=== PATIENT | female | born 1935 | race Caucasian/White ===

== ENCOUNTER 2019-08-13 11:13 | Inpatient (IN) | payer MEDICARE, OTHER ==
[2019-08-13] MEDS ORDERED: DILTIAZEM HCL INJ 25 MG/5 ML VIAL IV ONE (11:44)
[2019-08-13] MEDS ORDERED: METOPROLOL TARTRATE PF/INJ 5 MG/5 ML SDV IV ONE (11:44)
[2019-08-13 11:49] LABS: ABSOLUTE EOSINOPHILS # (AUTO) 0.1 10^3/uL (0.0-0.6); ABSOLUTE LYMPHOCYTES (AUTO) 1.5 10^3/uL (0.5-4.7); ABSOLUTE MONOCYTES (AUTO) 0.6 10^3/uL (0.1-1.4); ABSOLUTE NEUT (AUTO) 4.6 10^3/uL (1.7-8.2); BASOPHILS % (AUTO) 0.6 % (0-2); EOSINOPHILS % (AUTO) 0.8 % (0-6); HEMOGLOBIN 13.8 g/dL (12.0-15.5); LYMPHOCYTES % (AUTO) 22.5 % (13-45); MEAN CORPUSCULAR HEMOGLOBIN 27.6 pg (27.0-33.4); MEAN CORPUSCULAR HGB CONC 32.8 g/dL (32.0-36.0); MEAN CORPUSCULAR VOLUME 84 fl (80-97); MONOCYTES % (AUTO) 8.8 % (3-13); PLATELET COUNT 203 10^3/uL (150-450); SEGMENTED NEUTROPHILS % (AUTO) 67.3 % (42-78); TOTAL CELLS COUNTED % (AUTO) 100 %; WHITE BLOOD COUNT 6.9 10^3/uL (4.0-10.5)
--- NOTE | 2019-08-13 12:00 | EKG REPORT ---
SEVERITY:- ABNORMAL ECG - ATRIAL FIBRILLATION BORDERLINE LEFT AXIS DEVIATION BORDERLINE T ABNORMALITIES, LATERAL LEADS BORDERLINE PROLONGED QT INTERVAL : Confirmed by: Nanci De La Fuente 13-Aug-2019 11:58:51
[2019-08-13 12:01] LABS: ALBUMIN 4.1 g/dL (3.5-5.0); ALKALINE PHOSPHATASE 75 U/L (38-126); ANION GAP 10 (5-19); ASPARTATE AMINO TRANSFERASE 26 U/L (14-36); BILIRUBIN,DIRECT 0.1 mg/dL (0.0-0.4); BILIRUBIN,TOTAL 1.9 mg/dL (0.2-1.3); BLOOD UREA NITROGEN 12 mg/dL (7-20); CALCIUM 9.4 mg/dL (8.4-10.2); CARBON DIOXIDE 27 mmol/L (22-30); CHLORIDE 103 mmol/L (98-107); CREATINE KINASE 29 U/L (30-135); GLUCOSE 107 mg/dL (75-110); POTASSIUM 3.9 mmol/L (3.6-5.0); TOTAL PROTEIN 7.2 g/dL (6.3-8.2)
[2019-08-13 12:12] LABS: CREATINE KINASE MB 1.13 ng/mL (<4.55)
[2019-08-13 12:13] LABS: TROPONIN I < 0.012 ng/mL
--- NOTE | 2019-08-13 12:53 | RADIOLOGY REPORT (SQ) ---
EXAM DESCRIPTION: CHEST SINGLE VIEW COMPLETED DATE/TIME: 08/13/2019 12:31 pm REASON FOR STUDY: chest pain COMPARISON: 01/14/2016 EXAM PARAMETERS: NUMBER OF VIEWS: One view. TECHNIQUE: Single frontal radiographic view of the chest acquired. RADIATION DOSE: NA LIMITATIONS: None. FINDINGS: LUNGS AND PLEURA: Bilateral pleural effusions. No discrete opacities. MEDIASTINUM AND HILAR STRUCTURES: Large hiatal hernia. HEART AND VASCULAR STRUCTURES: Heart enlarged with vascular congestion. BONES: No acute findings. HARDWARE: None in the chest. OTHER: No other significant finding. IMPRESSION: Cardiac enlargement, vascular congestion, bilateral effusions. Hiatal hernia. TECHNICAL DOCUMENTATION: JOB ID: [id number] 2010 [employer]- All Rights Reserved Reading location - IP/workstation name: [email or web address]
--- NOTE | 2019-08-13 14:27 | ER Document Report ---
ED Respiratory Problem - General Chief Complaint: Breathing Difficulty Stated Complaint: BREATHING AND CHEST DISCOMFORT Time Seen by Provider: 08/13/19 11:33 Primary Care Provider: THADDEUS MCCLAIN MD [ACTIVE STAFF] - Follow up as needed Mode of Arrival: Medic Information source: Patient, Relative - Daughter Notes: This 84-year-old woman presents to the emergency department with a day history of shortness of breath and episodic chest tightness. She contacted her daughter was brought to the emergency department and found to be in atrial fib with RVR. Initial rate 130s to 140s, blood pressure 178/126. She states chest pain is episodic, short and fleeting. She is unable to speak in full sentences due to the shortness ' TRAVEL OUTSIDE OF THE [place] IN LAST 30 DAYS: No - Related Data Allergies/Adverse Reactions: Sulfa (Sulfonamide Antibiotics) Allergy (Verified 07/13/15 11:49) Home Medications: Lopressor. elliquis Past Medical History - Social History Smoking Status: Never Smoker Chew tobacco use (# tins/day): No Frequency of alcohol use: None Drug Abuse: None Family History: Reviewed & Not Pertinent Patient has suicidal ideation: No Patient has homicidal ideation: No - Past Medical History Cardiac Medical History: Reports: Hx Atrial Fibrillation, Hx Heart Attack, Hx Hypercholesterolemia, Hx Hypertension GI Medical History: Reports: Hx Gastroesophageal Reflux Disease Past Surgical History: Reports: Hx Appendectomy, Hx Genitourinary Surgery - Cystocele, rectocele, bladder prolapse surgery, Hx Hysterectomy, Hx Orthopedic Surgery - Bilateral hand surgery, bilateral heel spur surgery. - Immunizations Hx Pneumococcal Vaccination: 03/21/11 Review of Systems - Review of Systems Notes: Constitutional: Negative for fever. HENT: Negative for sore throat. Eyes: Negative for visual changes. Cardiovascular: + Chest pain. Respiratory: + Shortness of breath. Gastrointestinal: Negative for abdominal pain, vomiting or diarrhea. Genitourinary: Negative for dysuria. Musculoskeletal: Negative for back pain. Skin: Negative for rash. Neurological: Negative for headaches, weakness or numbness. 10 point ROS negative except as marked above and in HPI. Physical Exam - Vital signs Vitals: Pulse Ox 98 08/13/19 11:15 - Notes Notes: PHYSICAL EXAMINATION: Physical Exam: General: Well-nourished well-developed frail 84-year-old woman in moderate distress with dyspnea. HEENT: NC/AT, pupils equal round and reactive to light, MM moist,nares clear, oropharynx clear, airway patent Neck: supple, no adenopathy, no masses. Good range of motion Lungs: clear, no wheezing, + few scattered rales bilaterally, no rhonchi CVS: Irregularly irregular tachycardia Abdomen: Soft, active, nontender, no masses, no hepatosplenomegaly Ext: No edema, clubbing or cyanosis. Neuro: Alert and responsive, moving all 4 extremities on command, cranial nerves intact, no focal findings Skin: Intact no open lesions, no rash PSYCH: Normal mood, normal affect. Course - Re-evaluation Re-evalutation: 08/13/19 14:41 Patient had a significant improvement with IV Cardizem and IV metoprolol. Her rate slowed down into the 80s, patient is now able to talk in full sentences and the dyspnea has improved. Lab review first troponin is negative, the BNP is 7080. Chest x-ray reveals vascular congestion with cardiomegaly, bilateral pleural effusions. I discussed the patient with the hospitalist, Dr. Verduzco will admit the patient to observation for further management. - Vital Signs Vital signs: Temp Pulse Resp BP Pulse Ox 98.2 F 23 H 156/100 H 91 L 08/13/19 11:17 08/13/19 13:01 08/13/19 13:01 08/13/19 13:01 - Laboratory Result Diagrams: 08/13/19 11:13 08/13/19 11:13 Laboratory results interpreted by me: 08/13/19 08/13/19 11:13 11:13 Total Bilirubin 1.9 H Creatine Kinase 29 L NT-Pro-B Natriuret Pep 7080 H - Diagnostic Test Radiology reviewed: Image reviewed, Reports reviewed - X-ray: Cardiomegaly, bilateral vascular congestion with bilateral pleural effusion. - EKG Interpretation by Me Rhythm: A.Fib - Rate of 142, atrial fib with RVR, borderline prolonged QT interval. Critical Care Note - Critical Care Note Total time excluding time spent on procedures (mins): 45 - Critical care time spent obtaining history from patient or surrogate, discussions with consultants, development of treatment plan with patient or surrogate, evaluation of patient's response to treatment, examination of patient, ordering and performing treatments and interventions, ordering and review of laboratory studies, re- evaluation of patient's condition, ordering and review of radiographic studies and review of old charts Discharge - Discharge Clinical Impression: Atrial fibrillation with RVR, Chest pain, rule out acute myocardial infarction, Poorly-controlled hypertension CHF (congestive heart failure) Qualifiers: Heart failure type: other Qualified Code(s): I50.9 - Heart failure, unspecified Condition: Good Disposition: ADMITTED OBSERVATION Admitting Provider: Dax (Hospitalist) Unit Admitted: Telemetry Referrals: THADDEUS MCCLAIN MD [ACTIVE STAFF] - Follow up as needed
[2019-08-13] MEDS ORDERED: ACETAMINOPHEN 325 MG TABLET PO PRN (15:35)
[2019-08-13] MEDS ORDERED: IPRATROPIUM/ALBUTEROL 0.5-2.5 MG/3 ML AMPUL NEB PRN (15:35)
[2019-08-13] MEDS ORDERED: OXYCODONE-ACETAMINOPHEN 5-325 MG TABLET PO PRN (15:35)
--- NOTE | 2019-08-13 16:17 | PDOC H&P ---
History of Present Illness Admission Date/PCP: 08/13/19 14:38 JT BULLARD NP Patient complains of: Progressive difficulty breathing and shortness of breath for about 2 to 3 days History of Present Illness: NAV SALDANA is a 84 year old female Who presents to the emergency room with complaints of progressive difficulty breathing and shortness of breath. She also had associated palpitations as well as chest pain. She said she had started feeling poorly a few days ago. She recently had a flulike syndrome about 2 to 3 weeks ago which she felt recovered from however she started feeling poorly a few days ago with progressive difficulty breathing. She claims to be compliant with her medications although she admits to not taking it today because she was feeling sick. She called her daughter and then ended up coming to the emergency room where she was found to be in atrial fibrillation with a rapid ventricular response. She was given 5 mg of Lopressor IV as well as Cardizem IV. Patient was found to be somewhat tachypneic. Her BNP is elevated. Her blood pressure was also poorly controlled EKG shows atrial fibrillation with borderline T wave abnormalities. The last echocardiogram I see on computer records was from 2012 and so this is really almost irrelevant. At that time her ejection fraction was 65%. Past Medical History Cardiac Medical History: Reports: Atrial Fibrillation, Myocardial Infarction, Hyperlipidema, Hypertension GI Medical History: Reports: Gastroesophageal Reflux Disease Psychiatric Medical History: Reports: None Past Surgical History Past Surgical History: Reports: Appendectomy, Hysterectomy, Orthopedic Surgery - Bilateral hand surgery, bilateral heel spur surgery. Social History Information Source: Patient Lives with: Alone Smoking Status: Never Smoker Electronic Cigarette use?: No Frequency of Alcohol Use: None Hx Recreational Drug Use: No Drugs: None Hx Prescription Drug Abuse: No - Advance Directive Resuscitation Status: Do Not Intubate Surrogate healthcare decision maker:: Estelle DIPTI SpenceDavid, daughter. Family History Family History: Reviewed & Not Pertinent Parental Family History Reviewed: No Children Family History Reviewed: Yes Sibling(s) Family History Reviewed.: Yes Medication/Allergy Home Medications: Multivit-Min/Iron/Folic/Lutein [Centrum Silver Women Tablet] 1 each PO DAILY 06/18/15 Pantoprazole Sodium [Protonix] 40 mg PO DAILY 06/18/15 Rosuvastatin Calcium [Crestor 10 mg Tablet] 10 mg PO QHS 06/18/15 Apixaban [Eliquis 5 mg Tablet] 5 mg PO Q12 #60 tablet 06/22/15 Digoxin [Lanoxin 0.125 mg Tablet] 0.125 mg PO DAILY #30 tablet 06/22/15 Metoprolol Tartrate [Lopressor 25 mg Tablet] 37.5 mg PO BID 07/13/15 Allergies/Adverse Reactions: Sulfa (Sulfonamide Antibiotics) Allergy (Verified 07/13/15 11:49) Review of Systems Constitutional: ABSENT: chills, weakness Cardiovascular: PRESENT: dyspnea on exertion, orthropnea, palpitations. ABSENT: edema Respiratory: PRESENT: dyspnea. ABSENT: hemoptysis, sputum Gastrointestinal: PRESENT: as per HPI Genitourinary: ABSENT: dysuria, hematuria Physical Exam Vital Signs: Temp Pulse Resp BP Pulse Ox 98.2 F 23 H 156/100 H 91 L 08/13/19 11:17 08/13/19 13:01 08/13/19 13:01 08/13/19 13:01 Intake & Output 08/12/19 08/13/19 08/14/19 06:59 06:59 06:59 Weight 90.718 kg General appearance: PRESENT: no acute distress, cooperative, well-developed, well-nourished Head exam: PRESENT: atraumatic Neck exam: PRESENT: full ROM. ABSENT: JVD, tenderness Respiratory exam: PRESENT: decreased breath sounds, tachypnea, unlabored. ABSENT: wheezes Cardiovascular exam: PRESENT: irregular rhythm, +S1, +S2 GI/Abdominal exam: PRESENT: soft. ABSENT: tenderness Rectal exam: PRESENT: deferred Extremities exam: ABSENT: pedal edema, +1 edema, +2 edema Skin exam: PRESENT: dry, intact, warm. ABSENT: cyanosis, rash Results Laboratory Results: 08/13/19 11:13 08/13/19 11:13 08/13/19 08/13/19 11:13 11:13 WBC 6.9 RBC 5.00 Hgb 13.8 Hct 42.0 MCV 84 MCH 27.6 MCHC 32.8 RDW 14.0 Plt Count 203 Seg Neutrophils % 67.3 Sodium 139.5 Potassium 3.9 Chloride 103 Carbon Dioxide 27 Anion Gap 10 BUN 12 Creatinine 0.62 Est GFR ( Amer) > 60 Glucose 107 Calcium 9.4 Total Bilirubin 1.9 H AST 26 Alkaline Phosphatase 75 Total Protein 7.2 Albumin 4.1 08/13/19 08/13/19 08/13/19 11:13 11:13 11:13 Creatine Kinase 29 L CK-MB (CK-2) 1.13 Troponin I < 0.012 NT-Pro-B Natriuret Pep 7080 H EKG Comments: Atrial fibrillation Impressions: Chest X-Ray 08/13/19 11:15 IMPRESSION: Cardiac enlargement, vascular congestion, bilateral effusions. Hiatal hernia. Assessment and Plan - Diagnosis (2) CHF (congestive heart failure) Qualifiers: Heart failure type: other Qualified Code(s): I50.9 - Heart failure, unspecified Is this a current diagnosis for this admission?: Yes Plan: Acute decompensation the type of CHF is currently unclear. This can be classified better once echocardiogram is obtained (3) Chest pain, rule out acute myocardial infarction Is this a current diagnosis for this admission?: Yes (4) Poorly-controlled hypertension Is this a current diagnosis for this admission?: Yes (5) Bilateral pleural effusion Is this a current diagnosis for this admission?: Yes Plan: Likely secondary to CHF (6) Hiatal hernia Is this a current diagnosis for this admission?: Yes - Plan Summary Summary: Patient presents to the emergency room with atrial fibrillation with a rapid ventricle response. Patient does have chronic permanent atrial fibrillation. She has had progressive dyspnea and shortness of breath over the last 1 week. She also has an elevated BNP and clinically she does appear to be in decompensated CHF. She denies any prior history of CHF. She is on digoxin as well as metoprolol and Eliquis and states that she has been compliant with her medicine although she did not take them today. She had been on no diuretics. Patient will be continued on her home medications. Lasix has been added to her regimen. Initial troponin is negative. Patient's blood pressure was also poorly controlled and it is unclear if this is all spectrum of CHF. Echocardiogram will be obtained. Will hold off on Nitropaste for now. As she was on Eliquis I doubt that she has a PE although she is dyspneic [facility], vascular congestion as well as bilateral effusions. She also has incidental large hiatal hernia. Depending on his symptoms she may require thoracentesis however I will suggest reevaluation in a.m. and deciding probable cause. Of note she is on Eliquis and this will need to be stopped prior to any thoracentesis - Time Time Spent with patient: 35 or more minutes Medications reviewed and adjusted accordingly: Yes Anticipated discharge: Home Within: within 48 hours - Inpatient Certification Based on my medical assessment, after consideration of the patient's comorbidities, presenting symptoms, or acuity I expect that the services needed warrant INPATIENT care.: Yes Medical Necessity: Need Close Monitoring Due to Risk of Patient Decompensation
--- NOTE | 2019-08-13 16:19 | ADVANCED CARE ---
- Diagnosis (1) Atrial fibrillation with RVR Diagnosis Current: Yes (2) CHF (congestive heart failure) Diagnosis Current: Yes (3) Chest pain, rule out acute myocardial infarction Diagnosis Current: Yes (4) Poorly-controlled hypertension Diagnosis Current: Yes (5) Bilateral pleural effusion Diagnosis Current: Yes (6) Hiatal hernia Diagnosis Current: Yes Attendance: Patient Estelle Spence, daughter and POA Dr. Verduzco Resuscitation Status: Do Not Intubate Discussion: Conrad with patient as well as her daughter, Estelle Spence, who is the power of senior attorney. She indicates that she does not want to be intubated although agrees that she will want CPR and ACLS to be carried out. Her daughter concurs with her. Her daughter is also they want to make any decisions for her in case she is unable to. Patient and daughter verbalized understanding of the discussion Time Spent: 16 minutes
[2019-08-13] MEDS ORDERED: DIGOXIN 0.125 MG TABLET PO ONE (16:30)
[2019-08-13] MEDS: FUROSEMIDE INJ/PF 40 MG/4 ML SDV IV SCH (16:46)
[2019-08-13] MEDS ORDERED: PANTOPRAZOLE SODIUM 40 MG TABLET.DR PO ONE (18:15)
[2019-08-13] MEDS: PANTOPRAZOLE SODIUM 40 MG TABLET.DR PO SCH (18:29)
[2019-08-13] MEDS: APIXABAN 5 MG TABLET PO SCH (21:11)
[2019-08-13] MEDS: ATORVASTATIN CALCIUM 20 MG TABLET PO SCH (21:11)
[2019-08-13] MEDS: ZOLPIDEM TARTRATE 5 MG TABLET PO SCH (21:11)
[2019-08-13] MEDS: METOPROLOL TARTRATE 50 MG TABLET PO SCH (21:11)
[2019-08-14] MEDS: FUROSEMIDE INJ/PF 40 MG/4 ML SDV IV SCH ×2 (05:40→18:06)
[2019-08-14 05:58] LABS: ABSOLUTE EOSINOPHILS # (AUTO) 0.1 10^3/uL (0.0-0.6); ABSOLUTE LYMPHOCYTES (AUTO) 1.4 10^3/uL (0.5-4.7); ABSOLUTE MONOCYTES (AUTO) 0.6 10^3/uL (0.1-1.4); ABSOLUTE NEUT (AUTO) 3.7 10^3/uL (1.7-8.2); BASOPHILS % (AUTO) 0.8 % (0-2); EOSINOPHILS % (AUTO) 1.3 % (0-6); HEMATOCRIT 38.2 % (36.0-47.0); HEMOGLOBIN 12.9 g/dL (12.0-15.5); LYMPHOCYTES % (AUTO) 23.5 % (13-45); MEAN CORPUSCULAR HEMOGLOBIN 28.1 pg (27.0-33.4); MEAN CORPUSCULAR HGB CONC 33.8 g/dL (32.0-36.0); MEAN CORPUSCULAR VOLUME 83 fl (80-97); MONOCYTES % (AUTO) 10.9 % (3-13); PLATELET COUNT 181 10^3/uL (150-450); RED CELL DISTRIBUTION WIDTH 13.7 % (11.5-14.0); SEGMENTED NEUTROPHILS % (AUTO) 63.5 % (42-78); TOTAL CELLS COUNTED % (AUTO) 100 %; WHITE BLOOD COUNT 5.8 10^3/uL (4.0-10.5)
[2019-08-14 06:21] LABS: ANION GAP 9 (5-19); BLOOD UREA NITROGEN 13 mg/dL (7-20); CARBON DIOXIDE 30 mmol/L (22-30); CHLORIDE 101 mmol/L (98-107); GLUCOSE 92 mg/dL (75-110); POTASSIUM 3.6 mmol/L (3.6-5.0)
[2019-08-14 06:24] LABS: DIGOXIN < 0.40 ng/mL (0.8-2.0)
[2019-08-14 08:49] LABS: APPEARANCE,URINE SLIGHTLY-CLOUDY; BILIRUBIN,URINE NEGATIVE (NEGATIVE); COLOR,URINE YELLOW; GLUCOSE, URINE NEGATIVE (NEGATIVE); KETONES,URINE NEGATIVE (NEGATIVE); LEUKOCYTE ESTERASE,URINE LARGE (NEGATIVE); NITRITE,URINE POSITIVE (NEGATIVE); PROTEIN,URINE NEGATIVE (NEGATIVE); URINE SPECIFIC GRAVITY 1.008
[2019-08-14] MEDS: APIXABAN 5 MG TABLET PO SCH ×2 (10:00→18:06)
[2019-08-14] MEDS: DOCUSATE SODIUM 100 MG CAPSULE PO SCH (10:00)
[2019-08-14] MEDS: METOPROLOL TARTRATE 50 MG TABLET PO SCH ×2 (10:01→21:10)
[2019-08-14] MEDS: LOSARTAN POTASSIUM 25 MG TABLET PO SCH (10:01)
[2019-08-14] MEDS: CYANOCOBALAMIN (VITAMIN B-12) 1,000 MCG TABLET PO SCH (10:01)
[2019-08-14] MEDS: FLUTICASONE NASAL SPRAY 50 MCG/SPRY 120 SPRAY/16 GM NASL SCH (10:01)
[2019-08-14] MEDS: PANTOPRAZOLE SODIUM 40 MG TABLET.DR PO SCH (10:01)
[2019-08-14] MEDS: MULTIVITAMIN TABLET PO SCH (10:01)
[2019-08-14] MEDS: SERTRALINE HCL 50 MG TABLET PO SCH (10:01)
[2019-08-14] MEDS: LORATADINE 10 MG TABLET PO SCH (10:01)
--- NOTE | 2019-08-14 14:49 | PDOC PROGRESS REPORT ---
Subjective Progress Note for:: 08/14/19 Subjective:: Patient still noticing some palpitations but does not feel short of breath as before. However she has not really attempted to do much ambulation yet. Reason For Visit: AFIB WITH RVR Physical Exam Vital Signs: Temp Pulse Resp BP Pulse Ox 98.5 F 80 17 132/85 H 95 08/14/19 11:29 08/14/19 11:29 08/14/19 11:29 08/14/19 11:29 08/14/19 11:29 Intake & Output 08/13/19 08/14/19 08/15/19 06:59 06:59 06:59 Intake Total 250 720 Output Total 500 0 Balance -250 720 Weight 90.7 kg General appearance: PRESENT: no acute distress, cooperative Eye exam: ABSENT: EOMI Neck exam: ABSENT: JVD Respiratory exam: PRESENT: clear to auscultation yamile, unlabored. ABSENT: tachypnea, wheezes Cardiovascular exam: PRESENT: irregular rhythm, +S1, +S2, tachycardia GI/Abdominal exam: PRESENT: soft. ABSENT: normal bowel sounds, rebound, rigid, tenderness Neurological exam: PRESENT: alert, awake, oriented to person, oriented to place, oriented to time Results Laboratory Results: 08/14/19 05:38 08/14/19 05:38 08/14/19 08/14/19 08/14/19 05:38 05:38 07:00 WBC 5.8 RBC 4.60 Hgb 12.9 Hct 38.2 MCV 83 MCH 28.1 MCHC 33.8 RDW 13.7 Plt Count 181 Seg Neutrophils % 63.5 Sodium 140.1 Potassium 3.6 Chloride 101 Carbon Dioxide 30 Anion Gap 9 BUN 13 Creatinine 0.60 Est GFR ( Amer) > 60 Glucose 92 Calcium 9.0 Urine Color YELLOW Urine Appearance SLIGHTLY-CLOUDY Urine pH 7.0 Ur Specific [place] 1.008 Urine Protein NEGATIVE Urine Glucose (UA) NEGATIVE Urine Ketones NEGATIVE Urine Blood SMALL H Urine Nitrite POSITIVE H Ur Leukocyte Esterase LARGE H Urine WBC (Auto) 168 Urine RBC (Auto) 2 08/13/19 08/13/19 08/13/19 11:13 11:13 11:13 Creatine Kinase 29 L CK-MB (CK-2) 1.13 Troponin I < 0.012 NT-Pro-B Natriuret Pep 7080 H 08/13/19 15:15 Creatine Kinase CK-MB (CK-2) Troponin I 0.014 NT-Pro-B Natriuret Pep Impressions: Chest X-Ray 08/13/19 11:15 IMPRESSION: Cardiac enlargement, vascular congestion, bilateral effusions. Hiatal hernia. Assessment and Plan - Diagnosis (1) Persistent atrial fibrillation with rapid ventricular response Is this a current diagnosis for this admission?: Yes Plan: Currently on digoxin and Lopressor. IV Lopressor as needed as well. If tachycardia persists, will add p.o. diltiazem. Continue Eliquis. (2) CHF (congestive heart failure) Qualifiers: Heart failure type: unspecified Heart failure chronicity: acute on chronic Qualified Code(s): I50.9 - Heart failure, unspecified Is this a current diagnosis for this admission?: Yes Plan: Acute decompensation. Type of CHF is currently unclear as no EF assessment since 2012. Awaiting echocardiogram. IV Lasix. (3) Bilateral pleural effusion Is this a current diagnosis for this admission?: Yes Plan: Likely secondary to CHF. Diurese with Lasix. Hold off on thoracentesis at this time. (4) Chest pain, rule out acute myocardial infarction Is this a current diagnosis for this admission?: Yes Plan: Currently denies chest pain. Flat minimal troponin trend upon admission. (5) Poorly-controlled hypertension Is this a current diagnosis for this admission?: Yes Plan: Losartan. Metoprolol. - Time Time Spent with patient: 15-24 minutes
--- NOTE | 2019-08-14 18:49 | XCELERA REPORT ---
[address] [address] Transthoracic Echocardiogram Report Name: NAV SALDANA Age: 84 yrs Gender: Female : 1935 Patient Status: Inpatient Patient Location: [address] [place] [address] Study Date: 08/14/2019 02:28 PM Height: 66 in Weight: 200 lb BSA: 2.0 m2 Procedure: A two-dimensional transthoracic echocardiogram with color flow and Doppler was performed. Study Quality: Technically suboptimal. Reason For Study: Dyspnea, Elevated BNP History: Dyspnea. Ordering Physician: CARLOS ACUNA Performed By: Isadora Tirado Interpretation Summary Dyspnea The left ventricle is normal in size. There is normal left ventricular wall thickness. LV EF is 55% to 60% Left ventricular systolic function is normal. The left ventricular wall motion is normal. The right ventricle is not well visualized secondary to technical limitations The right atrium is normal. The left atrium is moderately dilated. There is no evidence of mitral valve prolapse. There is no vegetation seen on the mitral valve. There is no mitral valve stenosis. There is a trace to mild amount of mitral regurgitation There is no aortic valvular vegetation. There is no aortic valve stenosis There is no LVOT obstruction. No aortic regurgitation is present. There is no tricuspid stenosis. There is a trace to mild amount of tricuspid regurgitation There is mild pulmonary hypertension by echo RVSP is 35 to 40 mm of Hg , with RA mean of 5 to 10. There is no pulmonic valvular stenosis. There is a trace amount of pulmonic regurgitation The aortic root is normal size. The inferior vena cava appeared normal and decreased > 50% with respiration (RAP 5-10 mmHg) There is no pericardial effusion. MMode/2D Measurements & Calculations RVDd: 4.1 cm LVIDd: 4.8 cm FS: 21.7 % Ao root diam: 2.3 cm IVSd: 0.99 cm LVIDs: 3.8 cm EDV(Teich): 107.3 ml Ao root area: 4.3 cm2 LVPWd: 0.99 cm ESV(Teich): 60.2 ml EF(Teich): 43.9 % Doppler Measurements & Calculations MV E max inez: MV dec slope: Ao V2 max: LV V1 max P.6 cm/sec 362.2 cm/sec2 121.1 cm/sec 2.0 mmHg MV A max inez: MV dec time: 0.23 secAo max P.9 mmHgLV V1 max: 19.3 cm/sec 70.3 cm/sec MV E/A: 4.3 MR max inez: PA V2 max: TR max inez: 475.9 cm/sec 60.1 cm/sec 256.4 cm/sec MR max PG: PA max P.4 mmHg TR max P.6 mmHg 26.5 mmHg Left Ventricle The left ventricle is normal in size. There is normal left ventricular wall thickness. LV EF is 55% to 60%. Left ventricular systolic function is normal. LV diastolic function could not be adequately assessed due to atrial fibrilation. The left ventricular wall motion is normal. Right Ventricle The right ventricle is not well visualized secondary to technical limitations. Atria The right atrium is normal. The left atrium is moderately dilated. Mitral Valve There is no evidence of mitral valve prolapse. There is no vegetation seen on the mitral valve. There is no mitral valve stenosis. There is a trace to mild amount of mitral regurgitation. Aortic Valve There is no aortic valvular vegetation. There is no aortic valve stenosis. There is no LVOT obstruction. No aortic regurgitation is present. Tricuspid Valve There is no tricuspid stenosis. There is a trace to mild amount of tricuspid regurgitation. There is mild pulmonary hypertension by echo. RVSP is 35 to 40 mm of Hg , with RA mean of 5 to 10. Pulmonic Valve There is no pulmonic valvular stenosis. There is a trace amount of pulmonic regurgitation. Great Vessels The aortic root is normal size. The inferior vena cava appeared normal and decreased > 50% with respiration (RAP 5-10 mmHg). Effusions There is no pericardial effusion. : CARLOS ACUNA Lakshmi
--- NOTE | 2019-08-14 19:10 | PDOC CONSULTATION ---
Consultation-Blank Consultation: CARDIOLOGY CONSULTATION by Dr. Belkys Pagan on 08/14/2019. Patient seen at 3 PM. 60 minutes spent on this patient with more than 50% of time spent in direct patient care. REASON FOR CONSULTATION: Patient with heart failure and atrial fibrillation. CONSULT REQUESTING PHYSICIAN: frankie Winche[facility] hospitalist physician group HISTORY of PRESENT ILLNESS: Current Medications Generic Name Dose Route Start Last Admin Trade Name Freq PRN Reason Stop Dose Admin Acetaminophen 650 mg 08/13/19 15:35 08/14/19 05:40 Tylenol 325 Mg Tablet PO 09/12/19 15:34 325 mg Q4HP PRN Administration FOR PAIN SCALE 1-2 Albuterol/Ipratropium 3 ml 08/13/19 15:35 Duoneb 3 Ml Ampul NEB 09/12/19 15:34 [id number] PRN SHORTNESS OF BREATH Apixaban 5 mg 08/13/19 18:00 08/14/19 18:06 Eliquis 5 Mg Tablet PO 09/12/19 17:59 5 mg BID VITALIY Administration Atorvastatin Calcium 20 mg 08/13/19 22:00 08/14/19 21:10 Lipitor 20 Mg Tablet PO 09/12/19 21:59 20 mg QHS VITALIY Administration Cyanocobalamin 1,000 mcg 08/14/19 10:00 08/14/19 10:01 Vitamin B-12 1000 Mcg Tablet PO 09/13/19 09:59 1,000 mcg DAILY VITALIY Administration Docusate Sodium 100 mg 08/14/19 10:00 08/14/19 10:00 Colace 100 Mg Capsule PO 09/13/19 09:59 100 mg DAILY VITALIY Administration Fluticasone Propionate 1 spray 08/14/19 10:00 08/14/19 10:01 Flonase Nasal Limestone 50 Mcg/Limestone 16 Gm NASL 09/13/19 09:59 1 spr DAILY VITALIY Administration Furosemide 40 mg 08/13/19 17:00 08/14/19 18:06 Lasix Inj/Pf 40 Mg/4 Ml Sdv IV 09/12/19 16:59 40 mg Q12A VITALIY Administration Loratadine 10 mg 08/14/19 10:00 08/14/19 10:01 Claritin 10 Mg Tablet PO 09/13/19 09:59 10 mg DAILY VITALIY Administration Losartan Potassium 25 mg 08/14/19 10:00 08/14/19 10:01 Cozaar 25 Mg Tablet PO 09/13/19 09:59 25 mg DAILY VITALIY Administration Metoprolol Tartrate 50 mg 08/13/19 22:00 08/14/19 21:10 Lopressor 50 Mg Tablet PO 09/12/19 21:59 50 mg Q12 VITALIY Administration Multivitamins 1 tab 08/14/19 10:00 08/14/19 10:01 Tab-A-Victor Manuel (Multiple Vitamin) Tablet PO 09/13/19 09:59 1 tab DAILY VITALIY Administration Oxycodone/Acetaminophen 1 tab 08/13/19 15:35 Percocet 5-325 Mg Tablet PO 08/20/19 15:34 Q4HP PRN FOR PAIN SCALE 2-4 Pantoprazole Sodium 40 mg 08/13/19 17:30 08/14/19 10:[address] Tablet PO 09/12/19 17:29 40 mg DAILY VITALIY Administration Sertraline HCl 25 mg 08/14/19 10:00 08/14/19 10:01 Zoloft 50 Mg Tablet PO 09/13/19 09:59 25 mg DAILY VITALIY Administration Zolpidem Tartrate 5 mg 08/13/19 22:00 08/14/19 21:17 Ambien 5 Mg Tablet PO 08/20/19 21:59 Not Given QHS VITALIY Discontinued Medications Generic Name Dose Route Start Last Admin Trade Name Freq PRN Reason Stop Dose Admin Digoxin 0.125 mg 08/13/19 16:30 08/13/19 16:46 Lanoxin 0.125 Mg Tablet PO 08/13/19 16:31 0.125 mg NOW ONE Administration Diltiazem HCl 10 mg 08/13/19 11:44 08/13/19 12:17 Cardizem Inj 25 Mg/5 Ml Vial IV 08/13/19 11:45 10 mg NOW ONE Administration Metoprolol Tartrate 5 mg 08/13/19 11:44 08/13/19 12:11 Lopressor Inj/Pf 5 Mg/5 Ml Sdv IV 08/13/19 11:45 5 mg NOW ONE Administration Pantoprazole Sodium 40 mg 08/13/19 18:15 08/13/19 18:[address] Tablet PO 08/13/19 18:16 Not Given NOW ONE PHYSICAL EXAMINATION: The patient is mildly obese. In no acute distress. Selected Entries 08/14/19 15:25 Temperature 98.0 F Temperature Oral Source Pulse Rate 67 Respiratory 17 Rate Blood Pressure 135/78 H Blood Pressure 97 Mean BP Location Right Arm BP Position Supine O2 Sat by Pulse 95 Oximetry Oxygen Delivery Room Air Method RB head: Is atraumatic normocephalic. EYES: Pupils are equal round regular reac tive to light and accommodation. Extraocular movements are normal. There is no conjunctival pallor. There is no scleral icterus. EARS: Tympanic membranes are intact. External auditory canals are clear. NOSE: There is no deviated nasal septum. There is no inflammation nasal mucous membrane. MOUTH: Mucous membranes of mouth are moist. Tongue is moist. There is no ulcers. There is no bleeding from the gums. THROAT: There is no redness of the oropharynx. There is no exudates. SKIN: There is no skin rashes. There is no skin lesions. There is no petechia or ecchymosis NECK: Supple. There is no JVD. Carotids are equal there is no bruit there is no lymphadenopathy. There is no goiter. There is no accessory muscle respiration use. Trachea central. LUNGS: There is absent breath sounds in the bases. The rest of the lungs are clear without any rhonchi rales or wheezing. HEART: S1-S2 is heard. S1 is variable intensity. There is no S3 gallop. There is no S4 gallop. There is systolic murmur left sternal border and the apex there is no rub. ABDOMEN: Is soft. There is no hepatosplenomegaly. Bowel sounds is well heard. EXTREMITIES: Femorals are well felt. Leg pulses well felt. There is trace to mild pedal edema bilaterally. There is no DVT or cellulitis. There is no calf tenderness. There is no cyanosis or clubbing. 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 PSYCHIATRIC: The patient's mood and insight are intact. Affect is normal. ECHOCARDIOGRAM: Shows normal left atrial chamber size with no wall motion abnormality. LV ejection fraction is normal at 55 to 60%. There is mild pulmonary hypertension right ventricle systolic pressure is 35 to 40 mmHg. There is no significant valvular disease. Labs- Entire Visit 08/13/19 08/13/19 08/13/19 11:13 11:13 11:13 WBC 6.9 RBC 5.00 Hgb 13.8 Hct 42.0 MCV 84 MCH 27.6 MCHC 32.8 RDW 14.0 Plt Count 203 Lymph % (Auto) 22.5 Yancey % (Auto) 8.8 Eos % (Auto) 0.8 Baso % (Auto) 0.6 Absolute Neuts (auto) 4.6 Absolute Lymphs (auto) 1.5 Absolute Monos (auto) 0.6 Absolute Eos (auto) 0.1 Absolute Basos (auto) 0.0 Seg Neutrophils % 67.3 Sodium 139.5 Potassium 3.9 Chloride 103 Carbon Dioxide 27 Anion Gap 10 BUN 12 Creatinine 0.62 Est GFR ( Amer) > 60 Est GFR (MDRD) Non-Af > 60 Glucose 107 Calcium 9.4 Total Bilirubin 1.9 H Direct Bilirubin 0.1 Neonat Total Bilirubin Not Reportable Neonat Direct Bilirubin Not Reportable Neonat Indirect Bili Not Reportable AST 26 ALT 22 Alkaline Phosphatase 75 Creatine Kinase 29 L CK-MB (CK-2) 1.13 Troponin I < 0.012 NT-Pro-B Natriuret Pep Total Protein 7.2 Albumin 4.1 Urine Color Urine Appearance Urine pH Ur Specific [place] Urine Protein Urine Glucose (UA) Urine Ketones Urine Blood Urine Nitrite Urine Bilirubin Urine Urobilinogen Ur Leukocyte Esterase Urine WBC (Auto) Urine RBC (Auto) U Hyaline Cast (Auto) Urine Bacteria (Auto) Squamous Epi Cells Auto Urine Mucus (Auto) Urine Ascorbic Acid Digoxin 08/13/19 08/13/19 08/14/19 11:13 15:15 05:38 WBC 5.8 RBC 4.60 Hgb 12.9 Hct 38.2 MCV 83 MCH 28.1 MCHC 33.8 RDW 13.7 Plt Count 181 Lymph % (Auto) 23.5 Yancey % (Auto) 10.9 Eos % (Auto) 1.3 Baso % (Auto) 0.8 Absolute Neuts (auto) 3.7 Absolute Lymphs (auto) 1.4 Absolute Monos (auto) 0.6 Absolute Eos (auto) 0.1 Absolute Basos (auto) 0.0 Seg Neutrophils % 63.5 Sodium Potassium Chloride Carbon Dioxide Anion Gap BUN Creatinine Est GFR ( Amer) Est GFR (MDRD) Non-Af Glucose Calcium Total Bilirubin Direct Bilirubin Neonat Total Bilirubin Neonat Direct Bilirubin Neonat Indirect Bili AST ALT Alkaline Phosphatase Creatine Kinase CK-MB (CK-2) Troponin I 0.014 NT-Pro-B Natriuret Pep 7080 H Total Protein Albumin Urine Color Urine Appearance Urine pH Ur Specific [place] Urine Protein Urine Glucose (UA) Urine Ketones Urine Blood Urine Nitrite Urine Bilirubin Urine Urobilinogen Ur Leukocyte Esterase Urine WBC (Auto) Urine RBC (Auto) U Hyaline Cast (Auto) Urine Bacteria (Auto) Squamous Epi Cells Auto Urine Mucus (Auto) Urine Ascorbic Acid Digoxin 08/14/19 08/14/19 05:38 07:00 WBC RBC Hgb Hct MCV MCH MCHC RDW Plt Count Lymph % (Auto) [place]y % (Auto) Eos % (Auto) Baso % (Auto) Absolute Neuts (auto) Absolute Lymphs (auto) Absolute Monos (auto) Absolute Eos (auto) Absolute Basos (auto) Seg Neutrophils % Sodium 140.1 Potassium 3.6 Chloride 101 Carbon Dioxide 30 Anion Gap 9 BUN 13 Creatinine 0.60 Est GFR ( Amer) > 60 Est GFR (MDRD) Non-Af > 60 Glucose 92 Calcium 9.0 Total Bilirubin Direct Bilirubin Neonat Total Bilirubin Neonat Direct Bilirubin Neonat Indirect Bili AST ALT Alkaline Phosphatase Creatine Kinase CK-MB (CK-2) Troponin I NT-Pro-B Natriuret Pep Total Protein Albumin Urine Color YELLOW Urine Appearance SLIGHTLY-CLOUDY Urine pH 7.0 Ur Specific [place] 1.008 Urine Protein NEGATIVE Urine Glucose (UA) NEGATIVE Urine Ketones NEGATIVE Urine Blood SMALL H Urine Nitrite POSITIVE H Urine Bilirubin NEGATIVE Urine Urobilinogen 2.0 H Ur Leukocyte Esterase LARGE H Urine WBC (Auto) 168 Urine RBC (Auto) 2 U Hyaline Cast (Auto) 1 Urine Bacteria (Auto) TRACE Squamous Epi Cells Auto 2 Urine Mucus (Auto) RARE Urine Ascorbic Acid NEGATIVE Digoxin < 0.40 L Chest X-Ray 08/13/19 11:15 IMPRESSION: Cardiac enlargement, vascular congestion, bilateral effusions. Hiatal hernia. IMPRESSION/RECOMMENDATION: 1. Acute systolic heart failure with preserved LV ejection fraction. Most likely secondary to atrial fibrillation with uncontrolled ventricular response. At present heart failure is improving. Continue beta-zamzam continue Lasix. Would recommend continuing the ARB. 2. Atrial Fibrillation. Continue beta-zamzam. Continue Eliquis. 3. Hypertension: Blood pressure is fairly well controlled. 4. Hyperlipidemia: Continue statin. Occasions reviewed. Medication regimen and management plan discussed with the attending physician on the case. Medical decision making is a moderate to high complexity. 40 minutes spent as patient more than 50% time spent in direct patient care. Will follow.
[2019-08-14] MEDS: ATORVASTATIN CALCIUM 20 MG TABLET PO SCH (21:10)
[2019-08-14] MEDS: ZOLPIDEM TARTRATE 5 MG TABLET PO SCH (21:17)
[2019-08-15 06:13] LABS: ANION GAP 8 (5-19); BLOOD UREA NITROGEN 22 mg/dL (7-20); CALCIUM 9.4 mg/dL (8.4-10.2); CARBON DIOXIDE 32 mmol/L (22-30); CHLORIDE 99 mmol/L (98-107); GLUCOSE 100 mg/dL (75-110); POTASSIUM 3.4 mmol/L (3.6-5.0)
[2019-08-15] MEDS: FUROSEMIDE INJ/PF 40 MG/4 ML SDV IV SCH ×2 (06:21→17:15)
[2019-08-15] MEDS: POTASSIUM CHLORIDE 10 MEQ TABLET.ER PO SCH ×2 (09:42→13:34)
[2019-08-15] MEDS: FLUTICASONE NASAL SPRAY 50 MCG/SPRY 120 SPRAY/16 GM NASL SCH (09:43)
[2019-08-15] MEDS: LOSARTAN POTASSIUM 25 MG TABLET PO SCH (09:43)
[2019-08-15] MEDS: DOCUSATE SODIUM 100 MG CAPSULE PO SCH (09:44)
[2019-08-15] MEDS: SERTRALINE HCL 50 MG TABLET PO SCH (09:44)
[2019-08-15] MEDS: CYANOCOBALAMIN (VITAMIN B-12) 1,000 MCG TABLET PO SCH (09:45)
[2019-08-15] MEDS: PANTOPRAZOLE SODIUM 40 MG TABLET.DR PO SCH (09:45)
[2019-08-15] MEDS: MULTIVITAMIN TABLET PO SCH (09:45)
[2019-08-15] MEDS: APIXABAN 5 MG TABLET PO SCH ×2 (09:45→17:15)
[2019-08-15] MEDS: LORATADINE 10 MG TABLET PO SCH (09:46)
[2019-08-15] MEDS: METOPROLOL TARTRATE 50 MG TABLET PO SCH (09:46)
--- NOTE | 2019-08-15 17:35 | PDOC PROGRESS REPORT ---
Subjective Progress Note for:: 08/15/19 Subjective:: Patient is doing well today. Denies any shortness of breath or chest pain. Has not done much ambulation but states that she ambulates comfortably with her cane at home. Reason For Visit: AFIB WITH RVR Physical Exam Vital Signs: Temp Pulse Resp BP Pulse Ox 98.5 F 103 H 18 103/57 L 93 08/15/19 16:28 08/15/19 16:28 08/15/19 16:28 08/15/19 16:28 08/15/19 16:28 Intake & Output 08/14/19 08/15/19 08/16/19 06:59 06:59 06:59 Intake Total 250 1080 480 Output Total 500 300 200 Balance -250 780 280 Weight 90.7 kg 91 kg General appearance: PRESENT: no acute distress, cooperative Neck exam: ABSENT: JVD Respiratory exam: PRESENT: clear to auscultation yamile, unlabored. ABSENT: tachypnea, wheezes Cardiovascular exam: PRESENT: irregular rhythm, +S1, +S2, tachycardia GI/Abdominal exam: PRESENT: soft. ABSENT: rebound, rigid, tenderness Neurological exam: PRESENT: alert, awake, oriented to person, oriented to place, oriented to time Results Laboratory Results: 08/14/19 05:38 08/15/19 04:23 08/15/19 08/15/19 04:23 04:23 Sodium 138.9 Potassium 3.4 L Chloride 99 Carbon Dioxide 32 H Anion Gap 8 BUN 22 H Creatinine 0.79 Est GFR ( Amer) > 60 Glucose 100 Calcium 9.4 Magnesium 1.6 TSH 1.37 08/13/19 08/13/19 08/13/19 11:13 11:13 11:13 Creatine Kinase 29 L CK-MB (CK-2) 1.13 Troponin I < 0.012 NT-Pro-B Natriuret Pep 7080 H 08/13/19 15:15 Creatine Kinase CK-MB (CK-2) Troponin I 0.014 NT-Pro-B Natriuret Pep Impressions: Chest X-Ray 08/13/19 11:15 IMPRESSION: Cardiac enlargement, vascular congestion, bilateral effusions. Hiatal hernia. Assessment and Plan - Diagnosis (1) Persistent atrial fibrillation with rapid ventricular response Is this a current diagnosis for this admission?: Yes Plan: Heart rate seems better controlled this morning but seems to have picked up slightly this afternoon. Continue Lopressor 50 mg twice daily but I will give extra dose of 25 mg of Lopressor now. Continue Eliquis. (2) CHF (congestive heart failure) Qualifiers: Heart failure type: diastolic Heart failure chronicity: acute on chronic Qualified Code(s): I50.33 - Acute on chronic diastolic (congestive) heart failure Is this a current diagnosis for this admission?: Yes Plan: Acute decompensation with diastolic heart failure. Echo showing normal ejection fraction. Diastology could not be assessed because of A. fib. Continue with Lasix. (3) Bilateral pleural effusion Is this a current diagnosis for this admission?: Yes Plan: Likely secondary to CHF. Diurese with Lasix. Hold off on thoracentesis at this time. (4) Chest pain, rule out acute myocardial infarction Is this a current diagnosis for this admission?: Yes (5) Poorly-controlled hypertension Is this a current diagnosis for this admission?: Yes - Time Time Spent with patient: Less than 15 minutes
[2019-08-15] MEDS ORDERED: METOPROLOL TARTRATE 25 MG TABLET PO ONE (18:00)
[2019-08-15] MEDS: ATORVASTATIN CALCIUM 20 MG TABLET PO SCH (21:30)
[2019-08-15] MEDS: ZOLPIDEM TARTRATE 5 MG TABLET PO SCH (21:31)
[2019-08-15] MEDS ORDERED: METOPROLOL TARTRATE 50 MG TABLET PO SCH ×2 (22:00→23:17)
--- NOTE | 2019-08-15 23:40 | Progress Note ---
Provider Note Provider Note: CARDIOLOGY PROGRESS NOTE by Dr. Belkys Pagan on 08/15/2019. SUBJECTIVE: Patient states that shortness of breath is much improved. She has chronic orthopnea. But this is also improved her leg edema has improved a lot. She has no chest pain or discomfort. There is no PND. She continues to be atrial fibrillation the ventricular response is in the 100s. Still not optimally controlled heart rate. There is no bleeding on Eliquis. There is no TIA CVA symptoms. PHYSICAL EXAMINATION: The patient is mildly obese. In no acute distress. She is well-groomed. Selected Entries 08/15/19 16:28 Temperature 98.5 F Temperature Oral Source Pulse Rate 103 H Respiratory 18 Rate Blood Pressure 103/57 L Blood Pressure 72 Mean BP Location Right Arm BP Position Supine O2 Sat by Pulse 93 Oximetry Oxygen Delivery Room Air Method RB head: Is atraumatic normocephalic. EYES: Pupils are equal round regular reactive to light and accommodation. Extraocular movements are normal. There is no conjunctival pallor. There is no scleral icterus. EARS: Tympanic membran es are intact. External auditory canals are clear. NOSE: There is no deviated nasal septum. There is no inflammation nasal mucous membrane. MOUTH: Mucous membranes of mouth are moist. Tongue is moist. There is no ulcers. There is no bleeding from the gums. THROAT: There is no redness of the oropharynx. There is no exudates. SKIN: There is no skin rashes. There is no skin lesions. There is no petechia or ecchymosis NECK: Supple. There is no JVD. Carotids are equal there is no bruit there is no lymphadenopathy. There is no goiter. There is no accessory muscle respiration use. Trachea central. LUNGS: There is absent breath sounds in the bases. The rest of the lungs are clear without any rhonchi rales or wheezing. HEART: S1-S2 is heard. S1 is variable intensity. There is no S3 gallop. There is no S4 gallop. There is systolic murmur left sternal border and the apex there is no rub. ABDOMEN: Is soft. There is no hepatosplenomegaly. Bowel sounds is well heard. EXTREMITIES: Femorals are well felt. Leg pulses well felt. There is trace to mild pedal edema bilaterally. There is no DVT or cellulitis. There is no calf tenderness. There is no cyanosis or clubbing. TABLE HAND: The patient is conscious awake alert oriented x3 with no focal deficits. PSYCHIATRIC: The patient's mood and insight are intact. Affect is normal. Labs- All tests 24 hr 08/15/19 08/15/19 04:23 04:23 Sodium 138.9 Potassium 3.4 L Chloride 99 Carbon Dioxide 32 H Anion Gap 8 BUN 22 H Creatinine 0.79 Est GFR ( Amer) > 60 Est GFR (MDRD) Non-Af > 60 Glucose 100 Calcium 9.4 Magnesium 1.6 TSH 1.37 Chest X-Ray 08/13/19 11:15 IMPRESSION: Cardiac enlargement, vascular congestion, bilateral effusions. Hiatal hernia. IMPRESSION/RECOMMENDATION: 1. Acute systolic heart failure with preserved LV ejection fraction. Most likely secondary to atrial fibrillation with uncontrolled ventricular response. At present heart failure is improving. Continue beta-zamzam continue Lasix. Would recommend continuing the ARB. I reviewed the chest x-ray I am not very convinced that the patient has heart failure. Will get CT of the chest tomorrow. Will discuss with the hospitalist first. 2. Atrial Fibrillation. Will increase beta-zamzam dose to 75 mg p.o. every 12 hours.. Continue Eliquis. 3. Hypokalemia mild. Potassium is being replaced. 4. Hypertension: Blood pressure is fairly well controlled. 5. Hyperlipidemia: Continue statin.
[2019-08-16 05:25] LABS: ANION GAP 8 (5-19); BLOOD UREA NITROGEN 34 mg/dL (7-20); CALCIUM 9.6 mg/dL (8.4-10.2); CARBON DIOXIDE 31 mmol/L (22-30); CHLORIDE 100 mmol/L (98-107); GLUCOSE 98 mg/dL (75-110); POTASSIUM 4.1 mmol/L (3.6-5.0)
[2019-08-16] MEDS ORDERED: PANTOPRAZOLE SODIUM 40 MG TABLET.DR PO SCH (06:00)
[2019-08-16] MEDS: FUROSEMIDE INJ/PF 40 MG/4 ML SDV IV SCH (06:20)
[2019-08-16] MEDS ORDERED: POTASSIUM CHLORIDE 10 MEQ TABLET.ER PO SCH (10:00)
[2019-08-16] MEDS ORDERED: METOPROLOL TARTRATE 50 MG TABLET PO SCH (10:00)
[2019-08-16] MEDS ORDERED: FUROSEMIDE 40 MG TABLET PO SCH (10:00)
[2019-08-16] MEDS: SERTRALINE HCL 50 MG TABLET PO SCH (10:03)
[2019-08-16] MEDS: CYANOCOBALAMIN (VITAMIN B-12) 1,000 MCG TABLET PO SCH (10:03)
[2019-08-16] MEDS: MULTIVITAMIN TABLET PO SCH (10:05)
[2019-08-16] MEDS: LORATADINE 10 MG TABLET PO SCH (10:06)
[2019-08-16] MEDS: APIXABAN 5 MG TABLET PO SCH (10:06)
[2019-08-16] MEDS: LOSARTAN POTASSIUM 25 MG TABLET PO SCH (10:07)
[2019-08-16] MEDS: DOCUSATE SODIUM 100 MG CAPSULE PO SCH (10:08)
[2019-08-16] MEDS: FLUTICASONE NASAL SPRAY 50 MCG/SPRY 120 SPRAY/16 GM NASL SCH (10:09)
--- NOTE | 2019-08-16 12:17 | PDOC DISCHARGE SUMMARY ---
Impression - Admit/DC Date/PCP Admission Date/Primary Care Provider: 08/14/19 12:01 JT BULLARD NP Discharge Date: 08/16/19 - Discharge Diagnosis (1) Persistent atrial fibrillation with rapid ventricular response Is this a current diagnosis for this admission?: Yes (2) Acute diastolic heart failure Is this a current diagnosis for this admission?: Yes (3) Bilateral pleural effusion Is this a current diagnosis for this admission?: Yes (4) Chest pain, rule out acute myocardial infarction Is this a current diagnosis for this admission?: Yes (5) Poorly-controlled hypertension Is this a current diagnosis for this admission?: Yes - Additional Information Resuscitation Status: Do Not Intubate Discharge Diet: Cardiac Discharge Activity: Activity As Tolerated, Balance Activity w/Rest, Weigh Daily Referrals: JT BULLARD NP [Primary Care Provider] - 08/29/19 1:00 pm ZARINA VYAS MD [ACTIVE STAFF] - 08/24/19 1:15 pm Prescriptions: Losartan Potassium [Cozaar 25 mg Tablet] 25 mg PO DAILY #15 Furosemide [Lasix 20 mg Tablet] 20 mg PO QAM #30 tablet Metoprolol Tartrate [Lopressor 50 mg Tablet] 75 mg PO Q12 30 Days tablet Home Medications: Multivit-Min/Iron/Folic/Lutein [Centrum Silver Women Tablet] 1 each PO DAILY 06/18/15 Pantoprazole Sodium [Protonix] 40 mg PO DAILY 06/18/15 Rosuvastatin Calcium [Crestor 10 mg Tablet] 10 mg PO QHS 06/18/15 Apixaban [Eliquis 5 mg Tablet] 5 mg PO Q12 #60 tablet 06/22/15 Cyanocobalamin (Vitamin B-12) [B-12] 1,250 mcg SL DAILY 08/13/19 Fexofenadine HCl [Carina Allergy] 180 mg PO DAILY 08/13/19 Fluticasone Propionate [Flonase Nasal [place] 50 Mcg/[place] 16 gm] 1 spray NASL DAILY 08/13/19 Iron,Carbonyl/Ascorbic Acid [Iron 100-Vitamin C Tablet] 1 tab PO TUTH@1000 08/13/19 Sertraline HCl [Zoloft 50 mg Tablet] 25 mg PO DAILY 08/13/19 Furosemide [Lasix 20 mg Tablet] 20 mg PO QAM #30 tablet 08/16/19 Losartan Potassium [Cozaar 25 mg Tablet] 25 mg PO DAILY #15 08/16/19 Metoprolol Tartrate [Lopressor 50 mg Tablet] 75 mg PO Q12 30 Days tablet 08/16/19 History of Present Illiness History of Present Illness: NAV SALDANA is a 84 year old female Who presents to the emergency room with complaints of progressive difficulty breathing and shortness of breath. She a lso had associated palpitations as well as chest pain. She said she had started feeling poorly a few days ago. She recently had a flulike syndrome about 2 to 3 weeks ago which she felt recovered from however she started feeling poorly a few days ago with progressive difficulty breathing. She claims to be compliant with her medications although she admits to not taking it today because she was f eeling sick. She called her daughter and then ended up coming to the emergency room where she was found to be in atrial fibrillation with a rapid ventricular response. She was given 5 mg of Lopressor IV as well as Cardizem IV. Patient was found to be somewhat tachypneic. Her BNP is elevated. Her blood pressure was also poorly controlled EKG shows atrial fibrillation with borderline T wave abnormalities. The last echocardiogram I see on computer records was from 2012 and so this is really almost irrelevant. At that time her ejection fraction was 65%. Hospital Course Hospital Course: Patient was admitted for atrial fibrillation with rapid ventricular response. She was also noted to have elevated BNP and some interstitial changes with cardiomegaly as well as increased vascular congestion on chest x-ray. There was concern for acute congestive heart failure likely due to patient's tachyarrhythmia. Patient was started on metoprolol tartrate as opposed to Toprol-XL and her Lopressor was increased to 75 mg twice daily with significant improvement of her heart rate. Heart rate is currently controlled though still persistent atrial fibrillation. Patient received diuresis with IV Lasix. Patient's respiratory status is improved. Patient was seen by scale operator Dr. Caldwell who read patient's echocardiogram noting normal ejection fraction, unable to assess diastolic function but RVSP was only minimally elevated. He suspects that patient's acute heart failure was only likely secondary to the ongoing tachyarrhythmia and should improve with better heart rate control. Dr. Caldwell has recommended getting a high-res CT of the chest to evaluate for other causes of her pulmonary interstitial opacity. Patient's high-res CT showed mild para bronchial thickening centrally involving upper and lower lobes, probable atelectasis but no significant interstitial lung disease.. Patient is currently stable for discharge and will be discharged on a small dose of Lasix 20 mg daily. Physical Exam Vital Signs: Temp Pulse Resp BP Pulse Ox 98.0 F 99 18 118/65 92 08/16/19 07:44 08/16/19 07:44 08/16/19 07:44 08/16/19 07:44 08/16/19 07:44 Intake & Output 08/15/19 08/16/19 08/17/19 06:59 06:59 06:59 Intake Total 1080 840 Output Total 300 400 Balance 780 440 Weight 91 kg 91.4 kg General appearance: PRESENT: no acute distress, cooperative Neck exam: ABSENT: JVD Neurological exam: PRESENT: alert, awake, oriented to person, oriented to place, oriented to time Results Laboratory Results: WBC 5.8 10^3/uL (4.0-10.5) 08/14/19 05:38 RBC 4.60 10^6/uL (3.72-5.28) 08/14/19 05:38 Hgb 12.9 g/dL (12.0-15.5) 08/14/19 05:38 Hct 38.2 % (36.0-47.0) 08/14/19 05:38 MCV 83 fl (80-97) 08/14/19 05:38 MCH 28.1 pg (27.0-33.4) 08/14/19 05:38 MCHC 33.8 g/dL (32.0-36.0) 08/14/19 05:38 RDW 13.7 % (11.5-14.0) 08/14/19 05:38 Plt Count 181 10^3/uL (150-450) 08/14/19 05:38 Lymph % (Auto) 23.5 % (13-45) 08/14/19 05:38 Grady % (Auto) 10.9 % (3-13) 08/14/19 05:38 Eos % (Auto) 1.3 % (0-6) 08/14/19 05:38 Baso % (Auto) 0.8 % (0-2) 08/14/19 05:38 Absolute Neuts (auto) 3.7 10^3/uL (1.7-8.2) 08/14/19 05:38 Absolute Lymphs (auto) 1.4 10^3/uL (0.5-4.7) 08/14/19 05:38 Absolute Monos (auto) 0.6 10^3/uL (0.1-1.4) 08/14/19 05:38 Absolute Eos (auto) 0.1 10^3/uL (0.0-0.6) 08/14/19 05:38 Absolute Basos (auto) 0.0 10^3/uL (0.0-0.2) 08/14/19 05:38 Seg Neutrophils % 63.5 % (42-78) 08/14/19 05:38 Sodium 139.0 mmol/L (137-145) 08/16/19 04:02 Potassium 4.1 mmol/L (3.6-5.0) 08/16/19 04:02 Chloride 100 mmol/L (98-107) 08/16/19 04:02 Carbon Dioxide 31 mmol/L (22-30) H 08/16/19 04:02 Anion Gap 8 (5-19) 08/16/19 04:02 BUN 34 mg/dL (7-20) H 08/16/19 04:02 Creatinine 1.00 mg/dL (0.52-1.25) 08/16/19 04:02 Est GFR ( Amer) > 60 (>60) 08/16/19 04:02 Est GFR (MDRD) Non-Af 53 (>60) L 08/16/19 04:02 Glucose 98 mg/dL (75-110) 08/16/19 04:02 Calcium 9.6 mg/dL (8.4-10.2) 08/16/19 04:02 Magnesium 1.7 mg/dL (1.6-2.3) 08/16/19 04:02 Total Bilirubin 1.9 mg/dL (0.2-1.3) H 08/13/19 11:13 Direct Bilirubin 0.1 mg/dL (0.0-0.4) 08/13/19 11:13 Neonat Total Bilirubin Not Reportable 08/13/19 11:13 Neonat Direct Bilirubin Not Reportable 08/13/19 11:13 Neonat Indirect Bili Not Reportable 08/13/19 11:13 AST 26 U/L (14-36) 08/13/19 11:13 ALT 22 U/L (<35) 08/13/19 11:13 Alkaline Phosphatase 75 U/L (38-126) 08/13/19 11:13 Creatine Kinase 29 U/L (30-135) L 08/13/19 11:13 CK-MB (CK-2) 1.13 ng/mL (<4.55) 08/13/19 11:13 Troponin I 0.014 ng/mL 08/13/19 15:15 NT-Pro-B Natriuret Pep 2210 pg/mL (<450) H 08/16/19 04:02 Total Protein 7.2 g/dL (6.3-8.2) 08/13/19 11:13 Albumin 4.1 g/dL (3.5-5.0) 08/13/19 11:13 TSH 1.37 uIU/mL (0.47-4.68) 08/15/19 04:23 Urine Color YELLOW 08/14/19 07:00 Urine Appearance SLIGHTLY-CLOUDY 08/14/19 07:00 Urine pH 7.0 (5.0-9.0) 08/14/19 07:00 Ur Specific [place] 1.008 08/14/19 07:00 Urine Protein NEGATIVE mg/dL (NEGATIVE) 08/14/19 07:00 Urine Glucose (UA) NEGATIVE mg/dL (NEGATIVE) 08/14/19 07:00 Urine Ketones NEGATIVE mg/dL (NEGATIVE) 08/14/19 07:00 Urine Blood SMALL (NEGATIVE) H 08/14/19 07:00 Urine Nitrite POSITIVE (NEGATIVE) H 08/14/19 07:00 Urine Bilirubin NEGATIVE (NEGATIVE) 08/14/19 07:00 Urine Urobilinogen 2.0 mg/dL (<2.0) H 08/14/19 07:00 Ur Leukocyte Esterase LARGE (NEGATIVE) H 08/14/19 07:00 Urine WBC (Auto) 168 /HPF 08/14/19 07:00 Urine RBC (Auto) 2 /HPF 08/14/19 07:00 U Hyaline Cast (Auto) 1 /LPF 08/14/19 07:00 Urine Bacteria (Auto) TRACE /HPF 08/14/19 07:00 Squamous Epi Cells Auto 2 /HPF 08/14/19 07:00 Urine Mucus (Auto) RARE /LPF 08/14/19 07:00 Urine Ascorbic Acid NEGATIVE (NEGATIVE) 08/14/19 07:00 Digoxin < 0.40 ng/mL (0.8-2.0) L 08/14/19 05:38 08/13/19 08/13/19 08/13/19 11:13 11:13 15:15 CK-MB (CK-2) 1.13 Troponin I < 0.012 0.014 NT-Pro-B Natriuret Pep 7080 H 08/16/19 04:02 CK-MB (CK-2) Troponin I NT-Pro-B Natriuret Pep 2210 H Impressions: Chest X-Ray 08/13/19 11:15 IMPRESSION: Cardiac enlargement, vascular congestion, bilateral effusions. Hiatal hernia. Plan Time Spent: Greater than 30 Minutes Stroke Is this a Stroke Patient?: No Acute Heart Failure - Is this a Heart Failure Patient?: Yes Documentation of LVEF assessment?: Yes LVEF < 40%?: No- if no continue to question #3 3. Anticoagulant therapy for permanect/persistent/paraoxysmal Afib or Aflutter: Yes Follow-up Appointment scheduled within 7 days?: Yes
[2019-08-16 12:42] VITALS: BP 96/70
--- NOTE | 2019-08-16 13:16 | RADIOLOGY REPORT (SQ) ---
EXAM DESCRIPTION: CT CHEST WITHOUT COMPLETED DATE/TIME: 08/16/2019 12:51 pm REASON FOR STUDY: SOB, interstitial opacities. (HIGH RES CT) I48.21 PERMANENT ATRIAL FIBRILLATION COMPARISON: CT chest dated 06/18/2015, chest x-ray dated 08/13/2019 TECHNIQUE: High-resolution CT performed of the chest without intravenous contrast. The patient was scanned both prone and supine. Images reviewed with lung, soft tissue and bone windows. Reconstruct ed coronal and sagittal MPR images reviewed. All images stored on PACS. All CT scanners at this facility use dose modulation, iterative reconstruction, and/or weight based d osing when appropriate to reduce radiation dose to as low as reasonably achievable (ALARA). [facility]: Dose Right [facility]: CareDose [facility]: Dose Right [facility]: Teradose 4D [facility]: [employer] RADIATION DOSE: CT Rad equipment meets quality standard of care and radiation dose reduction techniq ues were employed. CTDIvol: 2.2 mGy. DLP: 71 mGy-cm. mGy. LIMITATIONS: No technical limitations. FINDINGS: LUNGS AND PLEURA: High-resolution images demonstrate dependent atelectasis with the patien t supine. With the patient prone there is some persistent airspace disease in the right base. The l eft lower lobe airspace disease resolves in the prone position. No focal consolidation. No suspicio us pulmonary nodules. No significant interstitial changes. Mild central peribronchial thickening in both the upper and lower lobes. HILAR AND MEDIASTINAL STRUCTURES: No identified masses or abnormal nodes. No obvious aneurysm. HEART AND VASCULAR STRUCTURES: No aneurysm. No pericardial effusion. UPPER ABDOMEN: No significant findings. Limited exam. THYROID AND OTHER SOFT TISSUES: No masses. No adenopathy. BONES: No significant finding. HARDWARE: None in the chest. OTHER: Moderate size hiatal hernia. IMPRESSION: No significant finding on high-resolution chest CT other than right lower lobe pleural t hickening and probable atelectasis which is not clear with the patient in the prone position. Mild p arabronchial thickening centrally in both the upper and lower lobes. TECHNICAL DOCUMENTATION: JOB ID: [id number] Quality ID # [id number]: Final reports with documentation of one or more dose reduction techniques (e.g., Au tomated exposure control, adjustment of the mA and/or kV according to patient size, use of iterative reconstruction technique) 2010 [employer]- All Rights Reserved Reading location - IP/workstation name: [email or web address]
== END 2019-08-16 17:17 | disposition home or self-care (01) | DRG 308 ==
LOC: ER 11:13 → EH 14:38 → 3S 16:11 → OBSVTOIN 08-14 12:01
PROVIDERS: ADMIT Internal Medicine; ATTEND Internal Medicine
DX: I48.21 Permanent atrial fibrillation (principal); I50.31 Acute diastolic (congestive) heart failure; I48.19 Other persistent atrial fibrillation; I10 Essential (primary) hypertension; E87.6 Hypokalemia; K21.9 Gastro-esophageal reflux disease without esophagitis; K44.9 Diaphragmatic hernia without obstruction or gangrene; E78.5 Hyperlipidemia, unspecified; Z88.2 Allergy status to sulfonamides; I25.2 Old myocardial infarction; Z90.49 Acquired absence of other specified parts of digestive tract; Z90.710 Acquired absence of both cervix and uterus; Z79.01 Long term (current) use of anticoagulants; Z79.899 Other long term (current) drug therapy
CPT/HCPCS: 36415; 71045; 71250; 80048; 80053; 80162; 81001; 82550; 82553; 83735; 83880; 84443; 84484; 85025; 93005; 93010; 93306; 96374; 96375; 99291; G0378; J1940; J3490